=== PATIENT | male | born 1945 | race Caucasian/White ===

== ENCOUNTER 2019-12-06 12:47 | Outpatient (CLI) | payer MEDICARE ==
--- NOTE | 2019-12-06 14:17 | ULT ---
THYROID ULRASOUND: 12/06/19 HISTORY: Hyperparathyroidism. FINDINGS: Both lobes of thyroid show homogeneous echotexture. Right lobe measures 5.0 x 2.4 x 1.4 cm. Left lobe measures 4.0 x 1.6 x 1.4 cm. In the right lobe, the re is a small cyst in the superior right lobe measuring 5 mm. A tiny complex nodule in the inferior right lobe measures 5 mm. Isthmus is unremarkable measuring 0.4 cm. IMPRESSION: There are two small nodules in the right lobe as described. Recommend follow-up thyroid ultrasound in 6 months to confirm stability. POS: AH
== END 2019-12-06 12:48 | disposition home or self-care (01) ==
LOC: BICULT 12:47
PROVIDERS: ATTEND Internal Medicine Endocrinology, Diabetes & Metabolism
DX: E21.3 Hyperparathyroidism, unspecified (principal); E04.2 Nontoxic multinodular goiter
CPT/HCPCS: 76536

== ENCOUNTER 2021-07-12 09:55 | Inpatient (IN) | payer MEDICARE ==
[2021-07-12 11:58] LABS: ALT (SGPT) 373 U/L (8-55); AST (SGOT) 159 U/L (5-34); Albumin 2.7 g/dL (3.4-4.8); Alkaline Phosphatase 203 U/L (40-110); Anion Gap 21 mmol/L (10-20); BUN (Urea Nitrogen) 61 mg/dL (8.4-25.7); Bilirubin, Total 1.7 mg/dL (0.2-1.2); Calc. Creatinine Clearance 0 mL/min (70-130); Calcium 8.7 mg/dL (7.8-10.44); Carbon Dioxide 16 mmol/L (23-31); Chloride 97 mmol/L (98-107); Globulin 9.1 g/dL (2.4-3.5); Glucose 102 mg/dL (83-110); Potassium 3.9 mmol/L (3.5-5.1); Protein, Total 11.8 g/dL (5.8-8.1); Sodium 130 mmol/L (136-145)
[2021-07-12 11:59] LABS: Bilirubin Negative (Negative); Blood, Urine Negative (Negative); Clarity Clear (Clear); Glucose, Urine (Dipstick) Normal (Negative); Ketone, Urine Negative (Negative); Leukocyte Negative Leu/uL (Negative); Nitrite Negative (Negative); Protein, Urine (Dipstick) Negative (Neg-Trace); Specific Gravity, Urine 1.009 (1.002-1.036); Urobilinogen Normal mg/dL (Less than 2)
[2021-07-12] MEDS ORDERED: Morphine 4 MG/ML VIAL ONE ×2 (11:59→12:18)
[2021-07-12] MEDS ORDERED: Ondansetron PF 4 MG/2 ML Vial ONE (11:59)
[2021-07-12 12:00] LABS: Anisocytosis MODERATE=16-30 cells (100X) (0-5/hpf); Band 8 % (5-11); Hemoglobin 5.9 g/dL (14.0-18.0); Lymphocytes 29 % (21-51); MDiff Complete? YES; Macrocytosis SLIGHT = 6-15 cells (100X) (0-5/hpf); Mean Corpuscular HGB CONC 32.5 g/dL (32.0-36.0); Mean Corpuscular Hemoglobin 31.7 pg (27.0-31.0); Mean Corpuscular Volume 97.6 fL (78.0-98.0); Mean Platelet Volume 6.7 fL (7.4-10.4); Monocytes 5 % (0-10); Neutrophil 58 % (42-75); Nucleated RBC 2 % (0); Platelet Count 184 thou/uL (130-400); Polychromasia MODERATE = 3-4 cells (100X) (0-2/hpf); RBC Distribution Width 20.7 % (11.5-14.5); Red Blood Cell (RBC) Count 1.85 mill/uL (4.70-6.10); White Blood Cell (WBC) Count 7.1 thou/uL (4.8-10.8)
[2021-07-12 12:25] LABS: Lipase 130 U/L (8-78)
[2021-07-12] MEDS ORDERED: Ondansetron ODT 4 MG TAB PO PRN ×2 (14:39→16:21)
[2021-07-12 14:40] LABS: INR-International Normal Ratio 1.3; Prothrombin Time 15.9 sec (12.0-14.7)
[2021-07-12] MEDS ORDERED: Ondansetron PF 4 MG/2 ML Vial IVP PRN ×2 (14:40→16:21)
[2021-07-12 14:41] LABS: PTT 45.5 sec (22.9-36.1)
[2021-07-12] MEDS ORDERED: Sodium Chloride 0.9% 1,000 ML IV SCH (14:45)
[2021-07-12 14:53] VITALS: BMI 26.6
[2021-07-12] MEDS ORDERED: hydrALAZINE 20 MG/ML VIAL SLOW IVP PRN (16:21)
[2021-07-12] MEDS: Lactated Ringer's 1,000 ML IV SCH (17:30)
[2021-07-12 18:11] LABS: Iron 25 ug/dL (65-175); Iron Binding Capacity, Total 209 mcg/dL (261-462)
[2021-07-12] MEDS: Pantoprazole 40 MG VIAL IVP SCH (20:08)
[2021-07-12] MEDS: Morphine 4 MG/ML VIAL SLOW IVP PRN (20:20)
[2021-07-13] MEDS: Morphine 4 MG/ML VIAL SLOW IVP PRN ×2 (00:19→19:42)
[2021-07-13] MEDS: Lactated Ringer's 1,000 ML IV SCH ×4 (00:51→23:01)
[2021-07-13] MEDS: Acetaminophen 325 MG TAB PO PRN (01:00)
[2021-07-13 06:29] LABS: Hemoglobin 7.1 g/dL (14.0-18.0); Mean Corpuscular HGB CONC 34.7 g/dL (32.0-36.0); Mean Corpuscular Hemoglobin 32.9 pg (27.0-31.0); Mean Corpuscular Volume 94.9 fL (78.0-98.0); Mean Platelet Volume 7.1 fL (7.4-10.4); Platelet Count 152 thou/uL (130-400); RBC Distribution Width 17.9 % (11.5-14.5); Red Blood Cell (RBC) Count 2.15 mill/uL (4.70-6.10)
[2021-07-13 06:44] LABS: Anion Gap 19 mmol/L (10-20); BUN (Urea Nitrogen) 63 mg/dL (8.4-25.7); Calc. Creatinine Clearance 28 mL/min (70-130); Calcium 9.1 mg/dL (7.8-10.44); Carbon Dioxide 18 mmol/L (23-31); Chloride 97 mmol/L (98-107); Glucose 88 mg/dL (83-110); Potassium 4.9 mmol/L (3.5-5.1); Sodium 129 mmol/L (136-145)
[2021-07-13 06:52] LABS: ALT (SGPT) 366 U/L (8-55); AST (SGOT) 161 U/L (5-34); Albumin 2.4 g/dL (3.4-4.8); Alkaline Phosphatase 167 U/L (40-110); Band 1 % (5-11); Bilirubin, Direct 2.4 mg/dL (0.1-0.3); Bilirubin, Total 3.3 mg/dL (0.2-1.2); Lymphocytes 26 % (21-51); MDiff Complete? YES; Monocytes 15 % (0-10); Neutrophil 52 % (42-75); Nucleated RBC 2 % (0); Platelet Morphology Comment Appears Decreased; Protein, Total 11.1 g/dL (5.8-8.1); Reactive Lymphocytes 4 % (0-10); Rouleaux Formation SLIGHT = 1-5 cells (100X) (None Seen); White Blood Cell (WBC) Count 6.2 thou/uL (4.8-10.8)
[2021-07-13] MEDS: Pantoprazole 40 MG VIAL IVP SCH ×2 (08:07→20:32)
[2021-07-13 11:20] LABS: SARS-CoV-2 NAA Rapid Test Not Detected (NotDetected)
[2021-07-13 11:37] LABS: Cardiac Risk 4.6 (Less than 4.5)
[2021-07-13 12:06] LABS: HBCM Index 0.06 S/CO (0-0.79); HBSAg Index 0.26 S/CO (0-0.99); Hep A IgM AB Non-Reactive (NonReactive); Hep A IgM S/CO 0.15 S/CO (0-0.79); Hep B Surf Ag Non-Reactive S/CO (NonReactive); Hep C IgG Ab Non-Reactive (NonReactive); Hep C Index 0.03 S/CO (0-0.79); Hepatitis B Core IgM Abs Non-Reactive (NonReactive); Thyroid Stimulating Hormone 1.9529 uIU/mL (0.35-4.94)
[2021-07-13] MEDS ORDERED: PROPOFOL 200 MG/20 ML VIAL ONE (13:04)
[2021-07-13] MEDS ORDERED: Lidocaine 1% PF 5 ML VIAL ONE (13:04)
[2021-07-13] MEDS ORDERED: Promethazine HCl 25 MG/ML VIAL IM PRN (13:22)
[2021-07-13] MEDS ORDERED: Ondansetron HCl/PF 4 MG/2 ML Vial IVP PRN (13:22)
[2021-07-13] MEDS ORDERED: Promethazine HCl 25 MG/ML VIAL IVPB PRN (13:22)
[2021-07-14] MEDS: Morphine 4 MG/ML VIAL SLOW IVP PRN ×4 (00:23→18:30)
[2021-07-14 06:19] LABS: ALT (SGPT) 300 U/L (8-55); AST (SGOT) 115 U/L (5-34); Albumin 2.2 g/dL (3.4-4.8); Alkaline Phosphatase 157 U/L (40-110); Anion Gap 15 mmol/L (10-20); BUN (Urea Nitrogen) 58 mg/dL (8.4-25.7); Bilirubin, Total 4.1 mg/dL (0.2-1.2); Calc. Creatinine Clearance 34 mL/min (70-130); Calcium 9.2 mg/dL (7.8-10.44); Carbon Dioxide 21 mmol/L (23-31); Chloride 101 mmol/L (98-107); Globulin 8.4 g/dL (2.4-3.5); Glucose 95 mg/dL (83-110); Potassium 4.8 mmol/L (3.5-5.1); Protein, Total 10.6 g/dL (5.8-8.1); Sodium 132 mmol/L (136-145)
[2021-07-14 06:40] LABS: Hemoglobin 6.8 g/dL (14.0-18.0); Mean Corpuscular HGB CONC 32.5 g/dL (32.0-36.0); Mean Corpuscular Hemoglobin 31.4 pg (27.0-31.0); Mean Corpuscular Volume 96.5 fL (78.0-98.0); Mean Platelet Volume 6.8 fL (7.4-10.4); Platelet Count 141 thou/uL (130-400); RBC Distribution Width 18.8 % (11.5-14.5); Red Blood Cell (RBC) Count 2.18 mill/uL (4.70-6.10); White Blood Cell (WBC) Count 6.5 thou/uL (4.8-10.8)
[2021-07-14 06:51] LABS: Band 7 % (5-11); Eosinophils 3 % (0-10); Lymphocytes 22 % (21-51); MDiff Complete? YES; Monocytes 8 % (0-10); Neutrophil 60 % (42-75)
[2021-07-14] MEDS: Pantoprazole 40 MG VIAL IVP SCH ×2 (08:17→20:05)
[2021-07-14] MEDS: Lactated Ringer's 1,000 ML IV SCH ×2 (08:17→18:09)
[2021-07-14] MEDS ORDERED: Magnevist 469MG/ML 20 ML VIAL ONE (09:12)
[2021-07-14 10:26] LABS: Troponin I 0.042 ng/mL (< 0.028)
[2021-07-14 10:43] LABS: Lactic Acid 0.8 mmol/L (0.5-2.2)
[2021-07-14 10:57] LABS: Syphilis Antibody Nonreactive (Nonreactive); Syphilis Antibody Index 0.07 S/CO (<1.00 Non-Reactive)
[2021-07-15] MEDS: Lactated Ringer's 1,000 ML IV SCH ×4 (01:36→15:32)
[2021-07-15] MEDS: Morphine 4 MG/ML VIAL SLOW IVP PRN ×5 (01:56→21:59)
[2021-07-15 07:12] LABS: Anion Gap 15 mmol/L (10-20); BUN (Urea Nitrogen) 48 mg/dL (8.4-25.7); Calc. Creatinine Clearance 43 mL/min (70-130); Calcium 9.7 mg/dL (7.8-10.44); Carbon Dioxide 22 mmol/L (23-31); Chloride 101 mmol/L (98-107); Glucose 92 mg/dL (83-110); Potassium 4.5 mmol/L (3.5-5.1); Sodium 133 mmol/L (136-145)
[2021-07-15] MEDS: Pantoprazole 40 MG VIAL IVP SCH ×2 (07:51→20:00)
[2021-07-15 08:23] LABS: Band 3 % (5-11); Hemoglobin 6.7 g/dL (14.0-18.0); Hypochromia SLIGHT = 6-15 cells (100X) (0-5/hpf); Lymphocytes 25 % (21-51); MDiff Complete? YES; Mean Corpuscular HGB CONC 33.7 g/dL (32.0-36.0); Mean Corpuscular Hemoglobin 33.3 pg (27.0-31.0); Mean Corpuscular Volume 98.8 fL (78.0-98.0); Mean Platelet Volume 6.8 fL (7.4-10.4); Metamyelocyte 1 % (0-0); Monocytes 12 % (0-10); Neutrophil 57 % (42-75); Nucleated RBC 1 % (0); Platelet Count 117 thou/uL (130-400); Platelet Morphology Comment Appears Decreased; Polychromasia MODERATE = 3-4 cells (100X) (0-2/hpf); RBC Distribution Width 19.5 % (11.5-14.5); Red Blood Cell (RBC) Count 2.02 mill/uL (4.70-6.10); Reflex for Review?? YES; Rouleaux Formation MARKED = >16 cells (100X) (None Seen); White Blood Cell (WBC) Count 5.6 thou/uL (4.8-10.8)
[2021-07-15] MEDS ORDERED: diphenhydrAMINE 25 MG CAP PO PRN (11:10)
[2021-07-15] MEDS ORDERED: Famotidine/PF 20 mg/2ml Vial SLOW IVP SCH (11:15)
[2021-07-15] MEDS: Acetaminophen 325 MG TAB PO PRN (12:18)
[2021-07-15 13:39] LABS: A/G Ratio 0.4 (0.7-1.7); Albumin 3.1 g/dL (2.9-4.4); Alpha 1 0.3 g/dL (0.0-0.4); Alpha 2 0.8 g/dL (0.4-1.0); Beta 0.8 g/dL (0.7-1.3); Gamma 5.5 g/dL (0.4-1.8); Globulin, Total 7.4 g/dL (2.2-3.9); M-Spike 4.7 g/dL (Not Observed); Protein Electrophoresis Intrp Note: (.)
[2021-07-15 18:01] LABS: Hemoglobin 7.4 g/dL (14.0-18.0); Mean Corpuscular HGB CONC 32.2 g/dL (32.0-36.0); Mean Corpuscular Hemoglobin 31.4 pg (27.0-31.0); Mean Corpuscular Volume 97.4 fL (78.0-98.0); Mean Platelet Volume 7.4 fL (7.4-10.4); Platelet Count 102 thou/uL (130-400); RBC Distribution Width 18.5 % (11.5-14.5); Red Blood Cell (RBC) Count 2.37 mill/uL (4.70-6.10); White Blood Cell (WBC) Count 5.8 thou/uL (4.8-10.8)
[2021-07-15 19:24] LABS: Anisocytosis SLIGHT = 6-15 cells (100X) (0-5/hpf); Eosinophils 2 % (0-10); Lymphocytes 21 % (21-51); MDiff Complete? YES; Monocytes 21 % (0-10); Neutrophil 56 % (42-75); Nucleated RBC 4 % (0); Platelet Morphology Comment Appears Decreased; Polychromasia SLIGHT = 2-3 cells (100X) (0-2/hpf)
[2021-07-15] MEDS: Polyethylene Glycol 3350 17 GM Packet PO SCH (20:02)
[2021-07-16] MEDS: Lactated Ringer's 1,000 ML IV SCH ×3 (00:01→14:00)
[2021-07-16] MEDS: Morphine 4 MG/ML VIAL SLOW IVP PRN ×4 (04:53→19:50)
[2021-07-16 06:53] LABS: Hemoglobin 7.6 g/dL (14.0-18.0); Mean Corpuscular Hemoglobin 33.4 pg (27.0-31.0); Mean Corpuscular Volume 98.2 fL (78.0-98.0); Mean Platelet Volume 7.4 fL (7.4-10.4); Platelet Count 94 thou/uL (130-400); Red Blood Cell (RBC) Count 2.28 mill/uL (4.70-6.10); White Blood Cell (WBC) Count 6.3 thou/uL (4.8-10.8)
[2021-07-16 07:04] LABS: Anion Gap 15 mmol/L (10-20); BUN (Urea Nitrogen) 41 mg/dL (8.4-25.7); Calc. Creatinine Clearance 46 mL/min (70-130); Calcium 9.6 mg/dL (7.8-10.44); Carbon Dioxide 22 mmol/L (23-31); Chloride 102 mmol/L (98-107); Glucose 84 mg/dL (83-110); Potassium 4.8 mmol/L (3.5-5.1); Sodium 134 mmol/L (136-145)
[2021-07-16] MEDS: Pantoprazole 40 MG VIAL IVP SCH ×2 (07:49→20:04)
[2021-07-16] MEDS: Polyethylene Glycol 3350 17 GM Packet PO SCH ×2 (07:49→20:04)
[2021-07-16 07:56] LABS: Lymphocytes 36 % (21-51); MDiff Complete? YES; Monocytes 4 % (0-10); Myelocyte 1 % (0-0); Neutrophil 50 % (42-75); Nucleated RBC 3 % (0); Rouleaux Formation MARKED = >16 cells (100X) (None Seen)
[2021-07-16 08:09] LABS: Platelet Morphology Comment Appears Decreased
[2021-07-16 08:14] LABS: Polychromasia MODERATE = 3-4 cells (100X) (0-2/hpf)
[2021-07-16 10:29] LABS: HIV (1/2) Antibody/Antigen Non-Reactive (NonReactive)
[2021-07-16 12:58] LABS: ANA Symphony (Qualitative) Negative (Negative); ANA Symphony (Quantitative) 0.1 Ratio (< 0.7 Negative); EliA Thy New Method **** NEW METHOD ****; EliA Vaculitis New Method **** NEW METHOD ****; Mitochondrial Ab Less than 0.5 U/mL (<4 Negative); dsDNA IgG Antibody Less than 0.5 IU/mL (<10 Negative)
[2021-07-16] MEDS: cefTRIAXone\\ROCEPHIN 2 GM in Sodium Chloride 0.9% 100 ML IVPB SCH (14:57)
[2021-07-16 16:15] LABS: Albumin-Ur 27.2 % (.); Alpha 1 - Ur 9.3 % (.); Alpha 2 - Ur 20.1 % (.); Gamma-Ur 26.4 % (.); M-Spike,% Not Observed % (Not Observed); Protein, Urine Less than 4.0 mg/dL (Not Estab.)
[2021-07-16] MEDS: Azithromycin 500 MG in Sodium Chloride 0.9% 250 ML 250 ML IVPB SCH (17:33)
[2021-07-16] MEDS: Tamsulosin HCl 0.4 MG CAP PO SCH (20:04)
[2021-07-17] MEDS: Acetaminophen 325 MG TAB PO PRN ×2 (00:03→10:01)
[2021-07-17] MEDS: Lactated Ringer's 1,000 ML IV SCH ×3 (02:58→15:21)
[2021-07-17] MEDS: Morphine 4 MG/ML VIAL SLOW IVP PRN ×3 (04:50→21:00)
[2021-07-17 06:57] LABS: Hemoglobin 7.2 g/dL (14.0-18.0); Mean Corpuscular Hemoglobin 31.9 pg (27.0-31.0); Mean Corpuscular Volume 99.8 fL (78.0-98.0); Mean Platelet Volume 7.4 fL (7.4-10.4); Platelet Count 93 thou/uL (130-400); RBC Distribution Width 19.5 % (11.5-14.5); Red Blood Cell (RBC) Count 2.25 mill/uL (4.70-6.10); White Blood Cell (WBC) Count 5.3 thou/uL (4.8-10.8)
[2021-07-17 07:07] LABS: Anion Gap 15 mmol/L (10-20); BUN (Urea Nitrogen) 35 mg/dL (8.4-25.7); Calc. Creatinine Clearance 46 mL/min (70-130); Calcium 9.6 mg/dL (7.8-10.44); Carbon Dioxide 21 mmol/L (23-31); Chloride 101 mmol/L (98-107); Glucose 96 mg/dL (83-110); Potassium 4.6 mmol/L (3.5-5.1); Sodium 132 mmol/L (136-145)
[2021-07-17 07:52] LABS: Band 1 % (5-11); Eosinophils 1 % (0-10); Lymphocytes 26 % (21-51); MDiff Complete? YES; Monocytes 9 % (0-10); Neutrophil 48 % (42-75); Nucleated RBC 2 % (0); Polychromasia MODERATE = 3-4 cells (100X) (0-2/hpf); Reactive Lymphocytes 5 % (0-10); Rouleaux Formation MARKED = >16 cells (100X) (None Seen)
[2021-07-17] MEDS: Pantoprazole 40 MG VIAL IVP SCH (09:18)
[2021-07-17] MEDS: Polyethylene Glycol 3350 17 GM Packet PO SCH ×2 (09:18→20:55)
[2021-07-17] MEDS: cefTRIAXone\\ROCEPHIN 2 GM in Sodium Chloride 0.9% 100 ML IVPB SCH (15:16)
[2021-07-17] MEDS: Azithromycin 500 MG in Sodium Chloride 0.9% 250 ML 250 ML IVPB SCH (15:16)
[2021-07-17] MEDS: Tamsulosin HCl 0.4 MG CAP PO SCH (20:54)
[2021-07-17 23:55] LABS: SARS-CoV-2 PCR by NAA Not Detected (NotDetected)
[2021-07-18] MEDS: Acetaminophen 325 MG TAB PO PRN ×4 (00:27→20:11)
[2021-07-18] MEDS: Lactated Ringer's 1,000 ML IV SCH ×3 (02:17→17:33)
[2021-07-18] MEDS: Morphine 4 MG/ML VIAL SLOW IVP PRN ×4 (03:23→21:43)
[2021-07-18] MEDS: Azithromycin 250 MG TAB PO SCH (09:24)
[2021-07-18] MEDS: Polyethylene Glycol 3350 17 GM Packet PO SCH ×2 (09:25→20:11)
[2021-07-18 14:14] LABS: Kappa Light Chains 5.8 mg/L (3.3-19.4); Lambda Light Chain 3207.1 mg/L (5.7-26.3)
[2021-07-18] MEDS: cefTRIAXone\\ROCEPHIN 2 GM in Sodium Chloride 0.9% 100 ML IVPB SCH (15:17)
[2021-07-18] MEDS: Tamsulosin HCl 0.4 MG CAP PO SCH (20:11)
[2021-07-19] MEDS: Morphine 4 MG/ML VIAL SLOW IVP PRN ×3 (01:37→09:48)
[2021-07-19] MEDS: Lactated Ringer's 1,000 ML IV SCH ×3 (01:37→17:49)
[2021-07-19] MEDS: Azithromycin 250 MG TAB PO SCH (08:30)
[2021-07-19] MEDS: Polyethylene Glycol 3350 17 GM Packet PO SCH (08:30)
[2021-07-19] MEDS ORDERED: HYDROcodone/Acetaminophen 5/325 mg Tablet PO PRN (09:56)
[2021-07-19] MEDS ORDERED: Mineral Oil ENEMA PR SCH (11:15)
[2021-07-19] MEDS: cefTRIAXone\\ROCEPHIN 2 GM in Sodium Chloride 0.9% 100 ML IVPB SCH (15:10)
[2021-07-19 20:20] VITALS: BP 163/79; TEMP 98.1
[2021-07-20 19:13] LABS: Cytoplasmic (C-ANCA) <1:20 titer (Neg:<1:20); Myeloperoxidase AutoAbs <9.0 U/mL (0.0-9.0); Perinuclear (P-ANCA) <1:20 titer (Neg:<1:20); Proteinase-3 AutoAbs Less than 3.5 U/mL (0.0-3.5)
== END 2021-07-19 19:54 | disposition short-term general hospital (02) | DRG 840 ==
LOC: ERS 09:55 → T4-B 13:27
PROVIDERS: ADMIT Internal Medicine; ATTEND Internal Medicine
PROC: 30233N1 Transfusion of Nonautologous Red Blood Cells into Peripheral Vein, Percutaneous Approach (ICD-10-PCS; principal; 2021-07-12)
PROC: 0DJ08ZZ Inspection of Upper Intestinal Tract, Via Natural or Artificial Opening Endoscopic (ICD-10-PCS; 2021-07-13)
DX: C90.00 Multiple myeloma not having achieved remission (principal); J18.9 Pneumonia, unspecified organism; N17.9 Acute kidney failure, unspecified; D62 Acute posthemorrhagic anemia; E87.1 Hypo-osmolality and hyponatremia; K92.1 Melena; Z20.822 Contact with and (suspected) exposure to COVID-19; C90.10 Plasma cell leukemia not having achieved remission; R10.13 Epigastric pain; K44.9 Diaphragmatic hernia without obstruction or gangrene; I25.10 Atherosclerotic heart disease of native coronary artery without angina pectoris; I10 Essential (primary) hypertension; R79.89 Other specified abnormal findings of blood chemistry; N13.9 Obstructive and reflux uropathy, unspecified; R04.0 Epistaxis; D63.0 Anemia in neoplastic disease; D69.59 Other secondary thrombocytopenia; E86.9 Volume depletion, unspecified; K80.20 Calculus of gallbladder without cholecystitis without obstruction; K59.00 Constipation, unspecified; R16.2 Hepatomegaly with splenomegaly, not elsewhere classified; R33.9 Retention of urine, unspecified; Z88.8 Allergy status to other drugs, medicaments and biological substances; Z79.899 Other long term (current) drug therapy; Z28.21 Immunization not carried out because of patient refusal; Z79.82 Long term (current) use of aspirin; Z95.5 Presence of coronary angioplasty implant and graft; Z98.890 Other specified postprocedural states; Z90.89 Acquired absence of other organs; Z87.891 Personal history of nicotine dependence; Z86.010 Personal history of colon polyps
CPT/HCPCS: 36415; 36416; 36430; 51702; 71045; 71046; 71250; 74018; 74177; 74183; 76705; 80048; 80053; 80061; 80074; 80076; 81003; 82607; 82728; 82746; 83516; 83520; 83540; 83550; 83605; 83690; 83880; 83883; 83930; 83935; 84165; 84166; 84443; 84466; 84484; 85025; 85060; 85610; 85730; 86037; 86038; 86160; 86225; 86376; 86644; 86645; 86780; 86850; 86900; 86901; 87070; 87086; 87205; 87389; 88184; 93005; 96374; 96375; A9579; C9113; J0456; J0696; J2270; J2405; J2704; J3490; J7050; J7120; P9016; S0028; U0002; U0003; U0005